=== PATIENT | female | born 1950 | race Caucasian/White ===

== ENCOUNTER 2018-07-29 12:47 | Outpatient (CLI) | payer MEDICARE, BC ==
--- NOTE | 2018-07-29 15:35 | CT ---
CT ANGIOGRAM NECK: HISTORY: Evaluate for stenosis. COMPARISON: None. CORRELATION: Carotid ultrasound from 07/01/2018. TECHNIQUE: A CT angiogram of the neck is performed in the axial plane, and 3-dimensional reformatted images are submitted for interpretation. FINDINGS: The visualized brain parenchyma and orbits are unremarkable. Adequate aeration of the sinuses and mastoid air cells. The oral cavity is limited in evaluation due to dental amalgam artifact. Midline fatty raphe of the tongue is preserved. There is no prevertebral soft tissue swelling. Cervical fusion plate with ante rior fusion changes are noted at C3 and C4. Grade 1 anterolisthesis of C4 upon C5. Epiglottis has a normal caliber. Preepiglottic fat is preserved. The larynx is unremarkable. Symmetric attenuation of the sternocleidomastoid muscles. Symmetric attenuation of the parotid and s ubmandibular glands. No evidence of lymphadenopathy due to size criteria. Varying degrees of central canal stenosis and foraminal narrowing due to degenerative change. The upper mediastinum and lung apices are unremarkable. On CT angiogram, the aortic arch has appropriate enhancement and luminal diameter. RIGHT CAROTID: The right carotid artery origin, the common carotid artery, the carotid bifurcation, and the internal carotid artery have appropriate enhancement and luminal diameter. There is mild med ial deviation of the right common carotid artery. LEFT CAROTID: The left carotid artery origin has appropriate enhancement and luminal diameter. The left common carotid artery, carotid bifurcation, and internal carotid artery have appropriate enhance ment and luminal diameter. There is mild medial deviation of the left common carotid artery. Both vertebral arteries are patent through their course in the neck. Bilateral subclavian arteries are also patent. IMPRESSION: No evidence of significant stenosis based upon NASCET criteria. POS: [facility]
[2018-07-29] MEDS ORDERED: Iopamidol 370 76% 100 ML VIAL ONE (17:01)
== END 2018-07-29 12:48 | disposition home or self-care (01) ==
LOC: BICCT 12:47
PROVIDERS: ATTEND Thoracic Surgery (Cardiothoracic Vascular Surgery)
DX: I65.29 Occlusion and stenosis of unspecified carotid artery (principal)
CPT/HCPCS: 70498; 82565; Q9967